=== PATIENT | male | born 1985 | race African-American/Black ===

== ENCOUNTER 2016-06-15 15:44 | Observation (INO) | payer MEDICAID ==
[2016-06-15 15:45] VITALS: BMI 30.5
[2016-06-15 16:14] LABS: AUTOMATED BASOPHIL 0.2 % (0-2); AUTOMATED EOSINOPHIL 1.8 % (0-5); AUTOMATED LYMPH 49.3 % (17-44); AUTOMATED MONOCYTE 16.4 % (3-10); AUTOMATED NEUTROPHIL 32.3 % (45-76); MPV 8.7 fL (7.4-10.4)
[2016-06-15 16:20] LABS: LEUKOCYTES/URINE NEG (NEGATIVE); NITRITE/URINE NEG (NEGATIVE); RBC/URINE 0-2 (0-2); URINE OCCULT BLOOD NEG (NEG/TRACE)
[2016-06-15 16:24] LABS: BLOOD UREA NITROGEN 19 MG/DL (9-20); CALC CORRECTED 8.9 MG/DL (8.4-10.2); CALCIUM 8.8 MG/DL (8.4-10.2); CALCULATED OSMOLALITY 270 MOs/Kg (270-290); CHLORIDE 100 mEq/L (98-107); ETOH-MGDL < 10 mg/dL; GLUCOSE 82 MG/DL (70-99); SODIUM LEVEL 140 mEq/L (137-146); TOTAL PROTEIN 8.4 G/DL (6.3-8.2)
[2016-06-15 16:24] LABS: ALL NEG? YES; MDMA* NEG (NEGATIVE); METHAMPHETAMINES NEG (NEGATIVE); OXYCODONE NEG (NEGATIVE)
[2016-06-15] MEDS: HALOPERIDOL 5 MG/ML VIAL IM ONE ×2 (17:53→19:32)
--- NOTE | 2016-06-15 18:04 | EDPRACDOC ---
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 PER STAFF PATIENT HAD BEEN AGGRESSIVE WITH THEM AT [facility] AND DID NOT FEEL SAFE. PATIENT HAS NOT THREATENED ANYONE AND CURRENTLY IS COOPERATIVE. Reason for Seeking Treatment: 911 Call Tetanus Up To Date?: Yes Able to Care for Self: No Able to Control Self: No <Ramin Arroyo - Last Filed: 06/16/16 14:41> - General Information Chief Complaint: Psychiatric Illness Stated Complaint: IVC - BROUGHT IN BY LAW ENFORCEMENT Time Seen by Provider: 06/15/16 17:48 Home Medications: Home Medications Benztropine Mesylate [Cogentin] 1 mg PO TID #60 tablet 10/21/15 ClonazePAM [Klonopin] 1 mg PO TID 30 Days 10/21/15 Propranolol HCl 20 mg PO TID 10/21/15 Quetiapine Fumarate [Seroquel] 600 mg PO HS 12/12/15 Divalproex Sodium [Depakote] 1,000 mg PO BID 02/10/16 Lorazepam [Ativan] 1 mg PO TID PRN 02/10/16 Quetiapine Fumarate [Seroquel] 200 mg PO .QAM & 1400 02/10/16 Allergies/Adverse Reactions: Allergies Allergy/AdvReac Type Severity Reaction Status Date / Time No Known Allergies Allergy Verified 02/10/16 10:39 ED Past Medical History - History Reviewed Yes Nurses notes reviewed and agree except as marked Travel Outside of [place] in the Last 3 Months?: No - Patient Medical History Neurological History: Reports: Seizures GI/ History: Reports: Gastroesophageal Reflux Psychological History: Reports: Bipolar Disorder. Denies: Depression, Substance Use Disorder Systemic History: Reports: Diabetes Additional Past Medical History: bipolar. MR - Social Medical History Smoking Status: Never smoker Social History: Denies: Substance Use Disorder Lives In: Senior Living <Ramin Arroyo - Last Filed: 06/16/16 14:41> EDM Review of Systems - Review of Systems ROS Negative Except as Marked: Yes All systems reviewed and were negative except as marked Constitutional: No Symptoms Reported. negative: Fever, Chills, Weakness, Fatigue, Loss of Appetite Eyes: No Symptoms Reported. negative: Redness, Blurred Vision, Double Vision, Discharge, Pain, Light Sensitive, Photophobia Ears: No Symptoms Reported. negative: Pain, Hearing Loss, Drainage, Ear Pulling Throat: No Symptoms Reported. negative: Pain, Swelling Nose: No Symptoms Reported. negative: Congestion, Bleeding, Discharge, Injection, Swelling, Deformity, Ecchymosis, Tender, Abrasion, Laceration Mouth: No Symptoms Reported. negative: Pain, Drooling Respiratory: No Symptoms Reported. negative: Cough, Brassy Cough, Barky Cough, Shortness of Breath, Wheezing, Hemoptysis Cardiovascular: No Symptoms Reported. negative: Chest Pain, Palpitations, Syncope, Edema, Orthopnea, PND, Skin Mottling, Cyanosis Gastrointestinal: No Symptoms Reported. negative: Pain, Constipation, Nausea, Vomiting, Diarrhea, Melena, Formula Intolerance Genitourinary: No Symptoms Reported. negative: Dysuria, Hematuria, Frequency, Discharge, Bleeding, Testicular Pain, Neurological: No Symptoms Reported. negative: Headache, Dizziness, Seizure, Numbness, Weakness, Speech Difficulty, Gait Difficulty Musculoskeletal: No Symptoms Reported. negative: Neck, Chestwall, Ribs, Back, Shoulder, Arm, Elbow, Forearm, Wrist, Hand, Pelvis, Hip, Femur, Knee, Leg, Ankle , Foot Integumentary: No Symptoms Reported. negative: Itching, Rash, Bruising, Wound Allergic/Immunologic: No Symptoms Reported. negative: Hives, Itching Hematologic: No Symptoms Reported. negative: Lymphadenopathy, Easy Bruising, Easy Bleeding Endocrine: No Symptoms Reported. negative: Weight Gain, Weight Loss Psychiatric: No Symptoms Reported. negative: Anxiety, Depression, Hallucinations, Insomnia, Suicidal <Ramin Arroyo - Last Filed: 06/16/16 14:41> - Physical Exam Last recorded Vital Signs: Last Vital Signs Temp 98 F 06/15/16 23:33 Pulse 78 06/15/16 23:33 Resp 20 06/15/16 23:33 BP 129/72 06/15/16 23:33 Pulse Ox 100 06/15/16 23:33 Oxygen Pulse Oxygen Saturation 98 O2 Device Room Air Oxygen Flow Rate Fraction of Inspired Oxygen ( FIO2) <Aubree Reyan - Last Filed: 06/16/16 13:05> - Physical Exam Last recorded Vital Signs: Last Vital Signs Temp 98 F 06/15/16 23:33 Pulse 78 06/15/16 23:33 Resp 20 06/15/16 23:33 BP 129/72 06/15/16 23:33 Pulse Ox 100 06/15/16 23:33 Oxygen Pulse Oxygen Saturation 98 O2 Device Room Air Oxygen Flow Rate Fraction of Inspired Oxygen ( FIO2) <Zain Engel - Last Filed: 06/16/16 13:12> - Physical Exam Constitutional: Alert (Awake), No apparent distress Oriented to: Person, Place Last recorded Vital Signs: Last Vital Signs Temp 98.1 F 06/15/16 16:03 Pulse 87 06/15/16 16:03 Resp 18 06/15/16 16:03 BP 140/96 06/15/16 16:03 Pulse Ox 98 06/15/16 16:03 Oxygen Pulse Oxygen Saturation 98 O2 Device Room Air Oxygen Flow Rate Fraction of Inspired Oxygen ( FIO2) - HEENT Head: Normal ( normocephalic) Eye Exam: Normal (PERRL, EOMI, Sclera white) Oropharynx: Normal (Pharynx:Moist without exudate,Gums-no swelling) Tympanic Membrane: Normal ENT EAC: Normal TMJ: Normal Nose: No Symptoms Reported (septum midline) Neck: Normal (FROM, trachea at midline) - Respiratory/Cardiovascular Respiratory: Normal - CTA (BBS clear to auscultation without adventitious sounds ) Cardiovascular: Normal (RRR without murmur, gallop or rub) - GI Auscultation: Normal (NABS) Palpation: Normal (Soft,No rebound or guarding, non distended) Tenderness: Non tender Garcia's Sign: Negative - Bladder: Normal - Musculoskeletal Back: Normal (Non-Tender) Extremities: Normal (Normal tone, Pulses 2+ No cyanosis or edema, FROM) - Integumentary Skin: Normal, Warm, Dry Lymphatics: Normal (no adenopathy) - Neurologic Memory Impaired: Normal Motor Function: Normal (Normal tone, Pulses 2+ No cyanosis or edema, FROM) Cranial Nerve: Normal (CN II-X11 intact sensation, strength 5/5) Cerebellar: Normal Mood Description: Normal Perception: Normal Neurologic Comment: PATIENT AT BASELINE <Ramin Arroyo - Last Filed: 01/11/17 14:41> - Results 06/15/16 16:02 06/15/16 16:02 WBC 5.8 xk/uL (3.8-10.8) 06/15/16 16:02 RBC 4.20 xM/uL (4.70-6.10) L 06/15/16 16:02 Hgb 13.8 g/dL (14.0-18.0) L 06/15/16 16:02 Hct 40.4 % (42-52) L 06/15/16 16:02 MCV 96 fL (80-94) H 06/15/16 16:02 MCH 32.9 pg (27-32) H 06/15/16 16:02 MCHC 34.3 g/dl (33-36) 06/15/16 16:02 RDW 12.8 % (11.5-14.5) 06/15/16 16:02 Plt Count 163 xk/uL (130-400) 06/15/16 16:02 MPV 8.7 fL (7.4-10.4) 06/15/16 16:02 Neut % (Auto) 32.3 % (45-76) L 06/15/16 16:02 Lymph % (Auto) 49.3 % (17-44) H 06/15/16 16:02 Elbert % (Auto) 16.4 % (3-10) H 06/15/16 16:02 Eos % (Auto) 1.8 % (0-5) 06/15/16 16:02 Baso % (Auto) 0.2 % (0-2) 06/15/16 16:02 Absolute Neuts (auto) 1.86 xk/uL (1.7-8.2) 06/15/16 16:02 Absolute Lymphs (auto) 2.84 xk/uL (0.65-4.75) 06/15/16 16:02 Sodium 140 mEq/L (137-146) 06/15/16 16:02 Potassium 3.4 mEq/L (3.5-5.1) L 06/15/16 16:02 Chloride 100 mEq/L (98-107) 06/15/16 16:02 Carbon Dioxide 30 mMOL/L (22-33) 06/15/16 16:02 Anion Gap 13 mEq/L (8-16) 06/15/16 16:02 BUN 19 MG/DL (9-20) 06/15/16 16:02 Creatinine 1.00 MG/DL (0.66-1.25) 06/15/16 16:02 Estimated GFR (MDRD) > 60 mL/min (>=60) 06/15/16 16:02 Glucose 82 MG/DL (70-99) 06/15/16 16:02 Calculated Osmolality 270 MOs/Kg (270-290) 06/15/16 16:02 Calcium 8.8 MG/DL (8.4-10.2) 06/15/16 16:02 Corrected Calcium 8.9 MG/DL (8.4-10.2) 06/15/16 16:02 Total Bilirubin 0.5 MG/DL (0.2-1.3) 06/15/16 16:02 AST 56 IU/L (17-59) 06/15/16 16:02 ALT 31 IU/L (21-72) 06/15/16 16:02 Alkaline Phosphatase 58 IU/L (38-126) 06/15/16 16:02 Total Protein 8.4 G/DL (6.3-8.2) H 06/15/16 16:02 Albumin 3.9 G/DL (3.5-5.0) 06/15/16 16:02 Urine Color Yellow 06/15/16 15:55 Urine Clarity Clear 06/15/16 15:55 Urine pH 6.0 (5.0-8.0) 06/15/16 15:55 Ur Specific [place] 1.005 (1.003-1.035) 06/15/16 15:55 Urine Protein Neg (NEG/TRACE) 06/15/16 15:55 Urine Glucose (UA) Neg (NEGATIVE) 06/15/16 15:55 Urine Ketones Neg (NEGATIVE) 06/15/16 15:55 Urine Occult Blood Neg (NEG/TRACE) 06/15/16 15:55 Urine Nitrite Neg (NEGATIVE) 06/15/16 15:55 Urine Bilirubin Neg (NEGATIVE) 06/15/16 15:55 Urine Urobilinogen <2.0 MG/DL (0-1) 06/15/16 15:55 Ur Leukocyte Esterase Neg (NEGATIVE) 06/15/16 15:55 Urine RBC 0-2 (0-2) 06/15/16 15:55 Urine Mucus Occ (NEG/OCC) 06/15/16 15:55 Urine Opiates Screen Neg (NEGATIVE) 06/15/16 15:55 Ur Oxycodone Screen Neg (NEGATIVE) 06/15/16 15:55 Urine Methadone Screen Neg (NEGATIVE) 06/15/16 15:55 Ur Barbiturates Screen Neg (NEGATIVE) 06/15/16 15:55 Valproic Acid 77.0 MCG/ML (50-100) 06/15/16 16:02 Ur Tricyclics Screen Neg (NEGATIVE) 06/15/16 15:55 Ur Phencyclidine Scrn Neg (NEGATIVE) 06/15/16 15:55 Ur Amphetamines Screen Neg (NEGATIVE) 06/15/16 15:55 U Methamphetamines Scrn Neg (NEGATIVE) 06/15/16 15:55 Urine MDMA Screen Neg (NEGATIVE) 06/15/16 15:55 U Benzodiazepines Scrn Neg (NEGATIVE) 06/15/16 15:55 Urine Cocaine Screen Neg (NEGATIVE) 06/15/16 15:55 Ur THC Screen Neg (NEGATIVE) 06/15/16 15:55 Plasma/Serum Ethyl Alc % (<0.01) 06/15/16 16:02 RPR Nonreactive (NONREACTIVE) 06/15/16 16:02 Lab Results 06/15/16 06/15/16 06/15/16 16:02 16:02 16:02 WBC 5.8 RBC 4.20 L Hgb 13.8 L Hct 40.4 L MCV 96 H MCH 32.9 H MCHC 34.3 RDW 12.8 Plt Count 163 MPV 8.7 Neut % (Auto) 32.3 L Lymph % (Auto) 49.3 H Elbert % (Auto) 16.4 H Eos % (Auto) 1.8 Baso % (Auto) 0.2 Absolute Neuts (auto) 1.86 Absolute Lymphs (auto) 2.84 Sodium Potassium Chloride Carbon Dioxide Anion Gap BUN Creatinine Estimated GFR (MDRD) Glucose Calculated Osmolality Calcium Corrected Calcium Total Bilirubin AST ALT Alkaline Phosphatase Total Protein Albumin Urine Color Urine Clarity Urine pH Ur Specific [place] Urine Protein Urine Glucose (UA) Urine Ketones Urine Occult Blood Urine Nitrite Urine Bilirubin Urine Urobilinogen Ur Leukocyte Esterase Urine RBC Urine Mucus Urine Opiates Screen Ur Oxycodone Screen Urine Methadone Screen Ur Barbiturates Screen Valproic Acid Cancelled Ur Tricyclics Screen Ur Phencyclidine Scrn Ur Amphetamines Screen U Methamphetamines Scrn Urine MDMA Screen U Benzodiazepines Scrn Urine Cocaine Screen Ur THC Screen Plasma/Serum Ethyl Alc RPR Nonreactive 06/15/16 06/15/16 06/15/16 16:02 15:55 15:55 WBC RBC Hgb Hct MCV MCH MCHC RDW Plt Count MPV Neut % (Auto) Lymph % (Auto) Elbert % (Auto) Eos % (Auto) Baso % (Auto) Absolute Neuts (auto) Absolute Lymphs (auto) Sodium 140 Potassium 3.4 L Chloride 100 Carbon Dioxide 30 Anion Gap 13 BUN 19 Creatinine 1.00 Estimated GFR (MDRD) > 60 Glucose 82 Calculated Osmolality 270 Calcium 8.8 Corrected Calcium 8.9 Total Bilirubin 0.5 AST 56 ALT 31 Alkaline Phosphatase 58 Total Protein 8.4 H Albumin 3.9 Urine Color Yellow Urine Clarity Clear Urine pH 6.0 Ur Specific [place] 1.005 Urine Protein Neg Urine Glucose (UA) Neg Urine Ketones Neg Urine Occult Blood Neg Urine Nitrite Neg Urine Bilirubin Neg Urine Urobilinogen <2.0 Ur Leukocyte Esterase Neg Urine RBC 0-2 Urine Mucus Occ Urine Opiates Screen Neg Ur Oxycodone Screen Neg Urine Methadone Screen Neg Ur Barbiturates Screen Neg Valproic Acid 77.0 Ur Tricyclics Screen Neg Ur Phencyclidine Scrn Neg Ur Amphetamines Screen Neg U Methamphetamines Scrn Neg Urine MDMA Screen Neg U Benzodiazepines Scrn Neg Urine Cocaine Screen Neg Ur THC Screen Neg Plasma/Serum Ethyl Alc RPR <Aubree Reyna W - Last Filed: 06/16/16 13:05> - Results 06/15/16 16:02 06/15/16 16:02 WBC 5.8 xk/uL (3.8-10.8) 06/15/16 16:02 RBC 4.20 xM/uL (4.70-6.10) L 06/15/16 16:02 Hgb 13.8 g/dL (14.0-18.0) L 06/15/16 16:02 Hct 40.4 % (42-52) L 06/15/16 16:02 MCV 96 fL (80-94) H 06/15/16 16:02 MCH 32.9 pg (27-32) H 06/15/16 16:02 MCHC 34.3 g/dl (33-36) 06/15/16 16:02 RDW 12.8 % (11.5-14.5) 06/15/16 16:02 Plt Count 163 xk/uL (130-400) 06/15/16 16:02 MPV 8.7 fL (7.4-10.4) 06/15/16 16:02 Neut % (Auto) 32.3 % (45-76) L 06/15/16 16:02 Lymph % (Auto) 49.3 % (17-44) H 06/15/16 16:02 Elbert % (Auto) 16.4 % (3-10) H 06/15/16 16:02 Eos % (Auto) 1.8 % (0-5) 06/15/16 16:02 Baso % (Auto) 0.2 % (0-2) 06/15/16 16:02 Absolute Neuts (auto) 1.86 xk/uL (1.7-8.2) 06/15/16 16:02 Absolute Lymphs (auto) 2.84 xk/uL (0.65-4.75) 06/15/16 16:02 Sodium 140 mEq/L (137-146) 06/15/16 16:02 Potassium 3.4 mEq/L (3.5-5.1) L 06/15/16 16:02 Chloride 100 mEq/L (98-107) 06/15/16 16:02 Carbon Dioxide 30 mMOL/L (22-33) 06/15/16 16:02 Anion Gap 13 mEq/L (8-16) 06/15/16 16:02 BUN 19 MG/DL (9-20) 06/15/16 16:02 Creatinine 1.00 MG/DL (0.66-1.25) 06/15/16 16:02 Estimated GFR (MDRD) > 60 mL/min (>=60) 06/15/16 16:02 Glucose 82 MG/DL (70-99) 06/15/16 16:02 Calculated Osmolality 270 MOs/Kg (270-290) 06/15/16 16:02 Calcium 8.8 MG/DL (8.4-10.2) 06/15/16 16:02 Corrected Calcium 8.9 MG/DL (8.4-10.2) 06/15/16 16:02 Total Bilirubin 0.5 MG/DL (0.2-1.3) 06/15/16 16:02 AST 56 IU/L (17-59) 06/15/16 16:02 ALT 31 IU/L (21-72) 06/15/16 16:02 Alkaline Phosphatase 58 IU/L (38-126) 06/15/16 16:02 Total Protein 8.4 G/DL (6.3-8.2) H 06/15/16 16:02 Albumin 3.9 G/DL (3.5-5.0) 06/15/16 16:02 Urine Color Yellow 06/15/16 15:55 Urine Clarity Clear 06/15/16 15:55 Urine pH 6.0 (5.0-8.0) 06/15/16 15:55 Ur Specific [place] 1.005 (1.003-1.035) 06/15/16 15:55 Urine Protein Neg (NEG/TRACE) 06/15/16 15:55 Urine Glucose (UA) Neg (NEGATIVE) 06/15/16 15:55 Urine Ketones Neg (NEGATIVE) 06/15/16 15:55 Urine Occult Blood Neg (NEG/TRACE) 06/15/16 15:55 Urine Nitrite Neg (NEGATIVE) 06/15/16 15:55 Urine Bilirubin Neg (NEGATIVE) 06/15/16 15:55 Urine Urobilinogen <2.0 MG/DL (0-1) 06/15/16 15:55 Ur Leukocyte Esterase Neg (NEGATIVE) 06/15/16 15:55 Urine RBC 0-2 (0-2) 06/15/16 15:55 Urine Mucus Occ (NEG/OCC) 06/15/16 15:55 Urine Opiates Screen Neg (NEGATIVE) 06/15/16 15:55 Ur Oxycodone Screen Neg (NEGATIVE) 06/15/16 15:55 Urine Methadone Screen Neg (NEGATIVE) 06/15/16 15:55 Ur Barbiturates Screen Neg (NEGATIVE) 06/15/16 15:55 Valproic Acid 77.0 MCG/ML (50-100) 06/15/16 16:02 Ur Tricyclics Screen Neg (NEGATIVE) 06/15/16 15:55 Ur Phencyclidine Scrn Neg (NEGATIVE) 06/15/16 15:55 Ur Amphetamines Screen Neg (NEGATIVE) 06/15/16 15:55 U Methamphetamines Scrn Neg (NEGATIVE) 06/15/16 15:55 Urine MDMA Screen Neg (NEGATIVE) 06/15/16 15:55 U Benzodiazepines Scrn Neg (NEGATIVE) 06/15/16 15:55 Urine Cocaine Screen Neg (NEGATIVE) 06/15/16 15:55 Ur THC Screen Neg (NEGATIVE) 06/15/16 15:55 Plasma/Serum Ethyl Alc % (<0.01) 06/15/16 16:02 RPR Nonreactive (NONREACTIVE) 06/15/16 16:02 Lab Results 06/15/16 06/15/16 06/15/16 16:02 16:02 16:02 WBC 5.8 RBC 4.20 L Hgb 13.8 L Hct 40.4 L MCV 96 H MCH 32.9 H MCHC 34.3 RDW 12.8 Plt Count 163 MPV 8.7 Neut % (Auto) 32.3 L Lymph % (Auto) 49.3 H Elbert % (Auto) 16.4 H Eos % (Auto) 1.8 Baso % (Auto) 0.2 Absolute Neuts (auto) 1.86 Absolute Lymphs (auto) 2.84 Sodium Potassium Chloride Carbon Dioxide Anion Gap BUN Creatinine Estimated GFR (MDRD) Glucose Calculated Osmolality Calcium Corrected Calcium Total Bilirubin AST ALT Alkaline Phosphatase Total Protein Albumin Urine Color Urine Clarity Urine pH Ur Specific [place] Urine Protein Urine Glucose (UA) Urine Ketones Urine Occult Blood Urine Nitrite Urine Bilirubin Urine Urobilinogen Ur Leukocyte Esterase Urine RBC Urine Mucus Urine Opiates Screen Ur Oxycodone Screen Urine Methadone Screen Ur Barbiturates Screen Valproic Acid Cancelled Ur Tricyclics Screen Ur Phencyclidine Scrn Ur Amphetamines Screen U Methamphetamines Scrn Urine MDMA Screen U Benzodiazepines Scrn Urine Cocaine Screen Ur THC Screen Plasma/Serum Ethyl Alc RPR Nonreactive 06/15/16 06/15/16 06/15/16 16:02 15:55 15:55 WBC RBC Hgb Hct MCV MCH MCHC RDW Plt Count MPV Neut % (Auto) Lymph % (Auto) Elbert % (Auto) Eos % (Auto) Baso % (Auto) Absolute Neuts (auto) Absolute Lymphs (auto) Sodium 140 Potassium 3.4 L Chloride 100 Carbon Dioxide 30 Anion Gap 13 BUN 19 Creatinine 1.00 Estimated GFR (MDRD) > 60 Glucose 82 Calculated Osmolality 270 Calcium 8.8 Corrected Calcium 8.9 Total Bilirubin 0.5 AST 56 ALT 31 Alkaline Phosphatase 58 Total Protein 8.4 H Albumin 3.9 Urine Color Yellow Urine Clarity Clear Urine pH 6.0 Ur Specific [place] 1.005 Urine Protein Neg Urine Glucose (UA) Neg Urine Ketones Neg Urine Occult Blood Neg Urine Nitrite Neg Urine Bilirubin Neg Urine Urobilinogen <2.0 Ur Leukocyte Esterase Neg Urine RBC 0-2 Urine Mucus Occ Urine Opiates Screen Neg Ur Oxycodone Screen Neg Urine Methadone Screen Neg Ur Barbiturates Screen Neg Valproic Acid 77.0 Ur Tricyclics Screen Neg Ur Phencyclidine Scrn Neg Ur Amphetamines Screen Neg U Methamphetamines Scrn Neg Urine MDMA Screen Neg U Benzodiazepines Scrn Neg Urine Cocaine Screen Neg Ur THC Screen Neg Plasma/Serum Ethyl Alc RPR <Zain Engel C - Last Filed: 06/16/16 13:12> - Results 06/15/16 16:02 06/15/16 16:02 WBC 5.8 xk/uL (3.8-10.8) 06/15/16 16:02 RBC 4.20 xM/uL (4.70-6.10) L 06/15/16 16:02 Hgb 13.8 g/dL (14.0-18.0) L 06/15/16 16:02 Hct 40.4 % (42-52) L 06/15/16 16:02 MCV 96 fL (80-94) H 06/15/16 16:02 MCH 32.9 pg (27-32) H 06/15/16 16:02 MCHC 34.3 g/dl (33-36) 06/15/16 16:02 RDW 12.8 % (11.5-14.5) 06/15/16 16:02 Plt Count 163 xk/uL (130-400) 06/15/16 16:02 MPV 8.7 fL (7.4-10.4) 06/15/16 16:02 Neut % (Auto) 32.3 % (45-76) L 06/15/16 16:02 Lymph % (Auto) 49.3 % (17-44) H 06/15/16 16:02 Elbert % (Auto) 16.4 % (3-10) H 06/15/16 16:02 Eos % (Auto) 1.8 % (0-5) 06/15/16 16:02 Baso % (Auto) 0.2 % (0-2) 06/15/16 16:02 Absolute Neuts (auto) 1.86 xk/uL (1.7-8.2) 06/15/16 16:02 Absolute Lymphs (auto) 2.84 xk/uL (0.65-4.75) 06/15/16 16:02 Sodium 140 mEq/L (137-146) 06/15/16 16:02 Potassium 3.4 mEq/L (3.5-5.1) L 06/15/16 16:02 Chloride 100 mEq/L (98-107) 06/15/16 16:02 Carbon Dioxide 30 mMOL/L (22-33) 06/15/16 16:02 Anion Gap 13 mEq/L (8-16) 06/15/16 16:02 BUN 19 MG/DL (9-20) 06/15/16 16:02 Creatinine 1.00 MG/DL (0.66-1.25) 06/15/16 16:02 Estimated GFR (MDRD) > 60 mL/min (>=60) 06/15/16 16:02 Glucose 82 MG/DL (70-99) 06/15/16 16:02 Calculated Osmolality 270 MOs/Kg (270-290) 06/15/16 16:02 Calcium 8.8 MG/DL (8.4-10.2) 06/15/16 16:02 Corrected Calcium 8.9 MG/DL (8.4-10.2) 06/15/16 16:02 Total Bilirubin 0.5 MG/DL (0.2-1.3) 06/15/16 16:02 AST 56 IU/L (17-59) 06/15/16 16:02 ALT 31 IU/L (21-72) 06/15/16 16:02 Alkaline Phosphatase 58 IU/L (38-126) 06/15/16 16:02 Total Protein 8.4 G/DL (6.3-8.2) H 06/15/16 16:02 Albumin 3.9 G/DL (3.5-5.0) 06/15/16 16:02 Urine Color Yellow 06/15/16 15:55 Urine Clarity Clear 06/15/16 15:55 Urine pH 6.0 (5.0-8.0) 06/15/16 15:55 Ur Specific [place] 1.005 (1.003-1.035) 06/15/16 15:55 Urine Protein Neg (NEG/TRACE) 06/15/16 15:55 Urine Glucose (UA) Neg (NEGATIVE) 06/15/16 15:55 Urine Ketones Neg (NEGATIVE) 06/15/16 15:55 Urine Occult Blood Neg (NEG/TRACE) 06/15/16 15:55 Urine Nitrite Neg (NEGATIVE) 06/15/16 15:55 Urine Bilirubin Neg (NEGATIVE) 06/15/16 15:55 Urine Urobilinogen <2.0 MG/DL (0-1) 06/15/16 15:55 Ur Leukocyte Esterase Neg (NEGATIVE) 06/15/16 15:55 Urine RBC 0-2 (0-2) 06/15/16 15:55 Urine Mucus Occ (NEG/OCC) 06/15/16 15:55 Urine Opiates Screen Neg (NEGATIVE) 06/15/16 15:55 Ur Oxycodone Screen Neg (NEGATIVE) 06/15/16 15:55 Urine Methadone Screen Neg (NEGATIVE) 06/15/16 15:55 Ur Barbiturates Screen Neg (NEGATIVE) 06/15/16 15:55 Valproic Acid 77.0 MCG/ML (50-100) 06/15/16 16:02 Ur Tricyclics Screen Neg (NEGATIVE) 06/15/16 15:55 Ur Phencyclidine Scrn Neg (NEGATIVE) 06/15/16 15:55 Ur Amphetamines Screen Neg (NEGATIVE) 06/15/16 15:55 U Methamphetamines Scrn Neg (NEGATIVE) 06/15/16 15:55 Urine MDMA Screen Neg (NEGATIVE) 06/15/16 15:55 U Benzodiazepines Scrn Neg (NEGATIVE) 06/15/16 15:55 Urine Cocaine Screen Neg (NEGATIVE) 06/15/16 15:55 Ur THC Screen Neg (NEGATIVE) 06/15/16 15:55 Plasma/Serum Ethyl Alc % (<0.01) 06/15/16 16:02 Lab Results 06/15/16 06/15/16 06/15/16 16:02 16:02 16:02 WBC 5.8 RBC 4.20 L Hgb 13.8 L Hct 40.4 L MCV 96 H MCH 32.9 H MCHC 34.3 RDW 12.8 Plt Count 163 MPV 8.7 Neut % (Auto) 32.3 L Lymph % (Auto) 49.3 H [place]bert % (Auto) 16.4 H Eos % (Auto) 1.8 Baso % (Auto) 0.2 Absolute Neuts (auto) 1.86 Absolute Lymphs (auto) 2.84 Sodium 140 Potassium 3.4 L Chloride 100 Carbon Dioxide 30 Anion Gap 13 BUN 19 Creatinine 1.00 Estimated GFR (MDRD) > 60 Glucose 82 Calculated Osmolality 270 Calcium 8.8 Corrected Calcium 8.9 Total Bilirubin 0.5 AST 56 ALT 31 Alkaline Phosphatase 58 Total Protein 8.4 H Albumin 3.9 Urine Color Urine Clarity Urine pH Ur Specific [place] Urine Protein Urine Glucose (UA) Urine Ketones Urine Occult Blood Urine Nitrite Urine Bilirubin Urine Urobilinogen Ur Leukocyte Esterase Urine RBC Urine Mucus Urine Opiates Screen Ur Oxycodone Screen Urine Methadone Screen Ur Barbiturates Screen Valproic Acid Cancelled 77.0 Ur Tricyclics Screen Ur Phencyclidine Scrn Ur Amphetamines Screen U Methamphetamines Scrn Urine MDMA Screen U Benzodiazepines Scrn Urine Cocaine Screen Ur THC Screen Plasma/Serum Ethyl Alc 06/15/16 06/15/16 15:55 15:55 WBC RBC Hgb Hct MCV MCH MCHC RDW Plt Count MPV Neut % (Auto) Lymph % (Auto) [place] % (Auto) Eos % (Auto) Baso % (Auto) Absolute Neuts (auto) Absolute Lymphs (auto) Sodium Potassium Chloride Carbon Dioxide Anion Gap BUN Creatinine Estimated GFR (MDRD) Glucose Calculated Osmolality Calcium Corrected Calcium Total Bilirubin AST ALT Alkaline Phosphatase Total Protein Albumin Urine Color Yellow Urine Clarity Clear Urine pH 6.0 Ur Specific [place] 1.005 Urine Protein Neg Urine Glucose (UA) Neg Urine Ketones Neg Urine Occult Blood Neg Urine Nitrite Neg Urine Bilirubin Neg Urine Urobilinogen <2.0 Ur Leukocyte Esterase Neg Urine RBC 0-2 Urine Mucus Occ Urine Opiates Screen Neg Ur Oxycodone Screen Neg Urine Methadone Screen Neg Ur Barbiturates Screen Neg Valproic Acid Ur Tricyclics Screen Neg Ur Phencyclidine Scrn Neg Ur Amphetamines Screen Neg U Methamphetamines Scrn Neg Urine MDMA Screen Neg U Benzodiazepines Scrn Neg Urine Cocaine Screen Neg Ur THC Screen Neg Plasma/Serum Ethyl Alc <Arroyo,Ramin - Last Filed: 06/16/16 14:41> Decision Time to Discharge: 13:05 - Departure Disposition: Home Education/Counseling Given To: Patient Education/Counseling Given Regarding: Diagnosis, Treatment, Prognosis, Follow Up <Aubree Reyna - Last Filed: 06/16/16 13:05> Decision Time to Discharge: 13:13 - Departure Yes I personally saw and evaluated the patient. Disposition: Home <Zain Engel - Last Filed: 06/16/16 13:12> <Ramin Arroyo - Last Filed: 06/16/16 14:41> - Departure Condition: Stable Final Diagnosis: Aggressive behavior
[2016-06-15] MEDS ORDERED: Docusate Sodium 100 MG CAP PO PRN (18:24)
[2016-06-15] MEDS ORDERED: ACETAMINOPHEN 325 MG/TAB TABLET PO PRN (18:24)
[2016-06-15] MEDS ORDERED: LORAZEPAM 1 MG TAB PO PRN (18:24)
[2016-06-15] MEDS ORDERED: MAGNESIUM HYDROXIDE 30 ML BOTTLE PO PRN (18:24)
[2016-06-15] MEDS ORDERED: IBUPROFEN 400 MG TAB PO PRN (18:24)
[2016-06-15] MEDS ORDERED: TEMAZEPAM 15 MG CAP PO PRN (18:24)
[2016-06-15] MEDS ORDERED: ONDANSETRON HCL 4 MG ODT TAB PO PRN (18:24)
[2016-06-15] MEDS ORDERED: GUAIFENESIN 200 MG/10 ML UDC PO PRN (18:24)
[2016-06-15] MEDS ORDERED: QUETIAPINE FUMARATE 200 MG PO SCH (18:30)
[2016-06-15] MEDS: LORAZEPAM 1 MG TAB PO ONE (18:30)
[2016-06-15] MEDS: DIVALPROEX SODIUM 500 MG PO SCH (20:03)
[2016-06-15] MEDS: BENZTROPINE MESYLATE 1 MG TAB PO SCH (20:03)
[2016-06-15] MEDS: PROPRANOLOL 20 MG TAB PO SCH (20:03)
[2016-06-15] MEDS ORDERED: QUETIAPINE FUMARATE 600 MG PO SCH (21:00)
[2016-06-15] MEDS ORDERED: QUETIAPINE FUMARATE 100 MG TAB PO SCH (21:00)
[2016-06-15 23:33] VITALS: TEMP 98
[2016-06-16] MEDS: PROPRANOLOL 20 MG TAB PO SCH (06:00)
[2016-06-16] MEDS: BENZTROPINE MESYLATE 1 MG TAB PO SCH (07:00)
[2016-06-16] MEDS ORDERED: QUETIAPINE FUMARATE 100 MG TAB PO SCH (08:00)
[2016-06-16] MEDS: DIVALPROEX SODIUM 500 MG PO SCH (09:18)
[2016-06-16] MEDS ORDERED: LORAZEPAM 2 MG/ML VIAL SL ONE (13:34)
[2016-06-16] MEDS ORDERED: HALOPERIDOL 5 MG TAB PO ONE (13:35)
[2016-06-16] MEDS: LORAZEPAM 1 MG TAB PO ONE (13:45)
[2016-06-16 14:27] VITALS: BP 122/72; PULSE 76
== END 2016-06-16 14:26 | disposition home or self-care (01) ==
LOC: ED 15:44 → TUOBSINP 19:01 → EDINP 06-16 08:41
PROVIDERS: ADMIT Emergency Medicine; ATTEND Emergency Medicine
DX: R45.1 Restlessness and agitation (principal)
CPT/HCPCS: 36415; 80053; 80164; 80307; 81001; 85025; 86592; 99285; G0378; J3490; J2060